=== PATIENT | male | born 1945 | race Two or more races ===

== ENCOUNTER 2018-02-18 00:34 | Emergency (ER) | payer MEDICARE ==
[~2018-02-18] VITALS: Ht 172.7 cm; Wt 63.5 kg
[2018-02-18 01:06] VITALS: BP 157/95
[2018-02-18] MEDS ORDERED: methylPREDNISolone SOD SUCC 125 MG/2 ML VL IM ONE (03:45)
[2018-02-18] MEDS ORDERED: KETOROLAC TROMETH 60MG/2ML VIAL IM ONE (03:45)
== END 2018-02-18 05:05 | disposition home or self-care (01) ==
LOC: ER 00:38 → EDBD 00:38 → ER 05:05
DX: M13.862 Other specified arthritis, left knee (principal)
CPT/HCPCS: 96372; 99284; J1885; J2930